=== PATIENT | female | born 1990 | race Caucasian/White ===

== ENCOUNTER → 2020-05-08 10:26 | Outpatient (CLI) | payer OTHER, SELFPAY ==
[2020-05-08 12:02] LABS: Add Manual Diff / Slide Review NO; Basophils Absolute Auto 100 /uL (0-100); Eosinophils Absolute Auto 100 /uL (0-450); Eosinophils Percent Auto 1.4 % (2-4); Hematocrit 35.6 % (36-46); Hemoglobin 11.3 g/dL (12.0-16.0); Lymphocytes Absolute Auto 1700 /uL (1100-4500); Lymphocytes Percent Auto 30.5 % (25-40); Mean Corpuscular HGB Conc 31.6 % (30-36); Mean Corpuscular Hemoglobin 24.3 PG (26-34); Mean Corpuscular Volume 76.9 fL (80-100); Monocytes Absolute Auto 400 /uL (0-900); Neutrophils Absolute Auto 3300 /uL (1500-7000); Neutrophils Percent Auto 60.1 % (50-75); Platelet Count 258 X10^3/uL (150-400); Red Blood Cell Count 4.63 X10^6/uL (4.0-5.2); Red Cell Distribution Width 14.7 % (11.6-14.8); White Blood Cell Count 5.5 X10^3/uL (4.5-11.0)
[2020-05-08 12:21] LABS: Alanine Aminotransferase 13 IU/L (<35); Albumin 4.7 g/dL (3.5-5.0); Alkaline Phosphatase 52 U/L (38-126); Aspartate Aminotransferase 23 IU/L (14-36); BUN Creatinine Ratio 23.8 (6-22); Bilirubin Total 0.4 mg/dL (0.2-1.3); Blood Urea Nitrogen 10 mg/dL (7-17); Calcium 9.7 mg/dL (8.4-10.2); Carbon Dioxide 24 mmol/L (22-32); Chloride 106 mmol/L (98-107); Estimated Glomerular Filt Rate > 60.0 mL/min (>60); Globulin 2.4 g/dL (1.7-4.1); Glucose 79 mg/dL (70-100); HEMOLYSIS < 15 (0-50); Potassium 4.6 mmol/L (3.4-5.1); Sodium 140 mmol/L (137-145); Total Protein 7.1 g/dL (6.3-8.2)
[2020-05-08 12:54] LABS: TSH w/ Reflex to FT4 1.76 uIU/mL (0.47-4.68)
[2020-05-12 12:08] LABS: H. Pylori Antigen Stool Negative (Negative)
== END ==
PROVIDERS: Referring Provider Registered Nurse Diabetes Educator; Visit Provider Registered Nurse Diabetes Educator
DX: R10.9 Unspecified abdominal pain (principal)
CPT/HCPCS: 36415; 80053; 84443; 85025; 87338

== ENCOUNTER → 2020-05-10 12:02 | Outpatient (CLI) | payer OTHER, SELFPAY | PROVIDERS: Referring Provider Registered Nurse Diabetes Educator; Visit Provider Registered Nurse Diabetes Educator | DX: R10.13 Epigastric pain (principal) | CPT/HCPCS: 87338 ==

== ENCOUNTER → 2020-05-22 11:39 | Outpatient (CLI) | payer OTHER, SELFPAY ==
[2020-05-25 17:39] LABS: Almond IgE <0.10 kU/L (Class 0); Cashew Nut IgE <0.10 kU/L (Class 0); Codfish Allergy IgE < 0.10 kU/L (Class 0); Egg White IgE <0.10 kU/L (Class 0); Hazelnut IgE <0.10 kU/L (Class 0); Milk IgE <0.10 kU/L (Class 0); Peanut IgE <0.10 kU/L (Class 0); Salmon Allergy IgE < 0.10 kU/L (Class 0); Scallop Allergy IgE < 0.10 kU/L (Class 0); Sesame seed Allergy IgE < 0.10 kU/L (Class 0); Shrimp IgE <0.10 kU/L (Class 0); Soybean IgE <0.10 kU/L (Class 0); Tuna Allergy IgE < 0.10 kU/L (Class 0); Walnut IgE <0.10 kU/L (Class 0); Wheat Allergy IgE < 0.10 kU/L (Class 0)
== END ==
PROVIDERS: Referring Provider Registered Nurse Diabetes Educator; Visit Provider Registered Nurse Diabetes Educator
DX: R10.84 Generalized abdominal pain (principal)
CPT/HCPCS: 36415; 86003

== ENCOUNTER → 2020-06-01 09:53 | Outpatient (CLI) | payer OTHER, SELFPAY ==
--- NOTE | 2020-06-01 09:54 | DI.US.S_ITS ---
PROCEDURE: US PELVIC COMPLETE INDICATIONS: Pelvic pain TECHNIQUE: Real-time scanning was performed of the pelvic organs, with image documentation. Additional endovaginal scanning was necessary due to incomplete visualization of the adnexal and endometrial structures by transabdominal scanning. COMPARISON: None. FINDINGS: Transabdominal scanning: Limited scanning through the kidneys shows no hydronephrosis. No pathologic free abdominal or pelvic fluid. Endovaginal scanning: Uterus: Uterus is normal in size at 4.3 x 5.9 x 7.9 cm. The endometrium measures 22.5 mm in combined thickness, hyperplastic. Ovaries: The right ovary measures 3.8 x 3.5 x 3.1 cm and the left measures 2.9 x 1.6 x 1.8 cm. There is a involuting cyst at the right ovary measuring up to 2.7 x 2.6 x 2.1 cm IMPRESSION: Involuting right ovarian cyst, endometrial hyperplasia given the thickness of the current endometrial lining of 22.5 mm. No uterine fibroid found. No abnormal pelvic free fluid or pelvic mass lesion identified. Dictated by: Nelson Granados M.D. on 06/01/2020 at 11:16 Approved by: Nelson Granados M.D. on 06/01/2020 at 11:18
== END ==
PROVIDERS: PCP Registered Nurse Diabetes Educator; Referring Provider Registered Nurse Diabetes Educator; Visit Provider Registered Nurse Diabetes Educator
DX: R10.2 Pelvic and perineal pain (principal); N94.0 Mittelschmerz; N94.6 Dysmenorrhea, unspecified; R14.0 Abdominal distension (gaseous); N83.201 Unspecified ovarian cyst, right side
CPT/HCPCS: 76830; 76856

== ENCOUNTER → 2020-06-25 11:36 | Outpatient (CLI) | payer OTHER, SELFPAY ==
[2020-06-26 13:10] LABS: Candida species Negative (Negative); Gardnerella vaginalis Negative (Negative); Trichomoas vaginalis Negative (Negative)
== END ==
PROVIDERS: PCP Registered Nurse Diabetes Educator; Visit Provider Obstetrics & Gynecology
DX: N89.8 Other specified noninflammatory disorders of vagina (principal)
CPT/HCPCS: 87480; 87510; 87660

== ENCOUNTER → 2020-08-07 10:16 | Outpatient (CLI) | payer OTHER, SELFPAY ==
--- NOTE | 2020-08-07 | DI.US.S_ITS ---
PROCEDURE: US ABDOMEN LIMITED INDICATIONS: Right upper quadrant pain TECHNIQUE: Real-time focused scanning was performed of the abdomen, with image documentation. COMPARISON: None. FINDINGS: The liver demonstrates normal size and overall normal echotexture. Within the right liver posteriorly, there is a hyperechoic a vascular lesion with a homogeneous echotexture that measures up to 12 mm. Within the mid right liver posteriorly, there is an additional similar appearing hyperechoic nonvascular homogeneous lesion that measures up to 7 mm. No findings of gallstones or sludge are seen. The gallbladder wall is not thickened, measuring 3 mm or less. No specific pericholecystic fluid is seen. The sonographic Page sign is negative. There is no biliary dilatation, the common bile duct measures 1-2 mm. No significant pancreatic abnormality is seen on these images. IMPRESSION: The gallbladder demonstrates a normal sonographic appearance. No biliary dilatation is seen. Two hyperechoic liver lesions are seen, which are most likely related to benign hemangiomas, particularly in a patient of this age. Attention should be paid to these foci on any future follow-up studies. Dictated by: Slava Willett M.D. on 08/07/2020 at 12:04 Approved by: Slava Willett M.D. on 08/07/2020 at 12:06
[2020-08-07 12:07] LABS: Add Manual Diff / Slide Review NO; Basophils Absolute Auto 100 /uL (0-100); Eosinophils Absolute Auto 100 /uL (0-450); Eosinophils Percent Auto 1.2 % (2-4); Hematocrit 37.1 % (36-46); Hemoglobin 12.2 g/dL (12.0-16.0); Lymphocytes Absolute Auto 1500 /uL (1100-4500); Lymphocytes Percent Auto 27.9 % (25-40); Mean Corpuscular HGB Conc 32.8 % (30-36); Mean Corpuscular Hemoglobin 26.1 PG (26-34); Mean Corpuscular Volume 79.4 fL (80-100); Monocytes Absolute Auto 300 /uL (0-900); Monocytes Percent Auto 4.9 % (3-14); Neutrophils Absolute Auto 3500 /uL (1500-7000); Platelet Count 258 X10^3/uL (150-400); Red Blood Cell Count 4.67 X10^6/uL (4.0-5.2); Red Cell Distribution Width 17.7 % (11.6-14.8); White Blood Cell Count 5.4 X10^3/uL (4.5-11.0)
[2020-08-07 12:36] LABS: Alanine Aminotransferase 11 IU/L (<35); Albumin 4.3 g/dL (3.5-5.0); Albumin Globulin Ratio 1.5 (1.0-2.8); Alkaline Phosphatase 49 U/L (38-126); Aspartate Aminotransferase 20 IU/L (14-36); BUN Creatinine Ratio 26.5 (6-22); Bilirubin Total 0.3 mg/dL (0.2-1.3); Blood Urea Nitrogen 13 mg/dL (7-17); Calcium 9.5 mg/dL (8.4-10.2); Carbon Dioxide 30 mmol/L (22-32); Chloride 106 mmol/L (98-107); Estimated Glomerular Filt Rate > 60.0 mL/min (>60); Globulin 2.9 g/dL (1.7-4.1); Glucose 90 mg/dL (70-100); HEMOLYSIS < 15 (0-50); Lipase 83 U/L (23-300); Potassium 4.6 mmol/L (3.4-5.1); Sodium 141 mmol/L (137-145); Total Protein 7.2 g/dL (6.3-8.2)
[2020-08-09 13:14] LABS: Deamidated Gliadin Ab IgA 108 units (0-19); Deamidated Gliadin Ab IgG 72 units (0-19); Immunoglobulin A,Qn 185 mg/dL (87-352); t-Transglutaminase IgA >100 U/mL (0-3)
== END ==
PROVIDERS: PCP Registered Nurse Diabetes Educator; Referring Provider Internal Medicine Gastroenterology; Visit Provider Internal Medicine Gastroenterology
DX: R10.11 Right upper quadrant pain (principal); K58.0 Irritable bowel syndrome with diarrhea; K76.9 Liver disease, unspecified
CPT/HCPCS: 36415; 76705; 80053; 82784; 83516; 83690; 85025